=== PATIENT | female | born 1975 | race Caucasian/White ===

== ENCOUNTER → 2019-07-26 | Outpatient (CLI) | payer MEDICAID ==
[~2019-07-26] MED LIST: CATHETER FLUSH 10 ML SYR IV PRN; GADOBUTROL 10 MMOL/10 ML (GADAVIST) VIAL IV ONE; NS 50 ML (IVPB) BAG IV ONE
--- NOTE | 2019-07-26 15:38 | Diagnostic Imaging Report ---
Reason for examination: High risk MRI. No prior MRIs for comparison. Most recent mammogram from November 2018 from [place], [place] was reviewed. TECHNIQUE: Utilizing 1.5 Kristen Siemens magnet, patient was placed in a prone position and a channel dedicated breast coil utilized. Axial STIR and fat sat T2 precontrasted images and axial T1 with and without fat-sat images were obtained. Postcontrast high-resolution dynamic images were also obtained. Pre and post contrasted images are then evaluated with DynaCAD for evaluation of possible angiogenesis. 10 mL of Gadavist was injected. The breast tissue shows scattered fibroglandular density. There is mild background parenchymal enhancement. RIGHT BREAST: There is no suspicious mass or non-mass enhancement in the right breast. LEFT BREAST: There is no suspicious mass or non-mass enhancement in the left breast. CHANDRIKA BASINS: No suspicious adenopathy in the bilateral regional chandrika basins. IMPRESSION: 1. No MRI evidence for malignancy. ACR BI-RADS Category 1: Negative. Recommendations: Annual mammography and MRI. Dictated by: Dictated on workstation # [id number]
== END ==
LOC: RAD 11:40
PROVIDERS: ATTEND Surgery
DX: Z12.39 Encounter for other screening for malignant neoplasm of breast (principal)
CPT/HCPCS: 77049